=== PATIENT | male | born 1945 | race Caucasian/White ===

== ENCOUNTER 2022-04-10 21:23 | Inpatient (IN) | payer MEDICARE ==
[~2022-04-10] VITALS: Ht 177.8 cm; Wt 97.6 kg
--- NOTE | 2022-04-10 21:23 | NUR ---
Dr Manzo in room MSE in progress
[2022-04-10] MEDS ORDERED: HYDROMORPHONE 1 MG/1 ML DISP.SYRIN ONE (21:56)
[2022-04-10] MEDS ORDERED: ONDANSETRON 4 MG/2 ML VIAL ONE (21:56)
[2022-04-10] MEDS ORDERED: ONDANSETRON 4 MG/2 ML VIAL IV ONE (22:00)
[2022-04-10] MEDS ORDERED: HYDROMORPHONE 1 MG/1 ML DISP.SYRIN IV ONE (22:00)
[2022-04-10] MEDS ORDERED: PRED20TA PO (22:09)
[2022-04-10] MEDS ORDERED: OXYC10TA49 PO (22:09)
[2022-04-10 22:17] LABS: HEMATOCRIT 37.7 % (36.7-47.1); MEAN CORPUSCULAR HEMOGLOBIN 30.9 uug (23.8-33.4); MEAN CORPUSCULAR VOLUME 92.5 fL (73.0-96.2); PLATELET COUNT (AUTO) 202 K/uL (152-348)
[2022-04-10 22:27] LABS: *BILIRUBIN,URIN 1+ (NEGATIVE); *COLOR,URINE YELLOW (YELLOW); *KETONES,URINE TRACE (NEGATIVE); LEUKOCYTE ESTERASE ,URINE NEGATIVE (NEGATIVE); NITRITE, URINE NEGATIVE (NEGATIVE); UGLUCOSE NEGATIVE (NEGATIVE)
[2022-04-10 22:30] LABS: *BLOOD, URINE TRACE (NEGATIVE)
[2022-04-10 22:33] LABS: *CLARITY,URINE HAZY (CLEAR)
[2022-04-10] MEDS ORDERED: IV NORMAL SALINE 1000 ML BAG IV ONE (22:45)
[2022-04-10 22:49] LABS: ALANINE AMINOTRANSFERASE 46 U/L (16-63); ALKALINE PHOSPHATASE 110 U/L (50-136); ASPARTATE AMINOTRANSFERASE 21 U/L (15-37); BILIRUBIN,DIRECT 0.3 mg/dL (0.0-0.2); BILIRUBIN,TOTAL 0.7 mg/dL (0.2-1.0); CARBON DIOXIDE 31 mmol/L (21-32); CHLORIDE 102 mmol/L (98-107); CREATININE 0.9 mg/dL (0.6-1.3); GLUCOSE 131 mg/dL (74-106); LIPASE 65 U/L (73-393); POTASSIUM 3.2 mmol/L (3.5-5.1); TOTAL PROTEIN, SERUM 6.6 g/dL (6.4-8.2); UREA NITROGEN, BLOOD 17 mg/dL (7-18)
[2022-04-10] MEDS ORDERED: IV NORMAL SALINE 250 ML IV ONE (23:06)
[2022-04-10] MEDS ORDERED: SWABABLE VALVE TRANSFER SET EA MC ONE (23:06)
[2022-04-10] MEDS ORDERED: IOHEXOL 300MG/ML 100 ML INFUS..BTL ONE (23:06)
[2022-04-10] MEDS ORDERED: IV 0.9% SODIUM CHLORID+ 20 KCL 1,000 ML IV ONE (23:15)
[2022-04-10] MEDS ORDERED: SCOPOLAMINE PATCH 1 MG/72 HRS PATCH TD SCH (23:15)
--- NOTE | 2022-04-10 23:18 | NUR ---
PATIENT TAKEN TO CT
--- NOTE | 2022-04-10 23:35 | NUR ---
Patient back from CT
[2022-04-11] MEDS ORDERED: POTASSIUM CHLORIDE 100 ML ONE (00:07)
[2022-04-11] MEDS ORDERED: PIPERACILLIN/TAZOBACTAM/D5W 50 ML IV ONE (00:09)
[2022-04-11] MEDS ORDERED: PIPERACILLIN SODIUM/TAZOBACTAM 3.375 G in IV DEXTROSE 5% 50 ML IV ONE (00:15)
--- NOTE | 2022-04-11 02:20 | NUR ---
CALLED [facility] FOR PANEL CALL
--- NOTE | 2022-04-11 02:43 | NUR ---
Patient will be admitted to med/surg room 325
[2022-04-11] MEDS ORDERED: ONDANSETRON 4 MG/2 ML VIAL IV PRN (02:45)
[2022-04-11] MEDS ORDERED: LORAZEPAM 2 MG/1 ML VIAL IV PRN (02:45)
[2022-04-11] MEDS ORDERED: ACETAMINOPHEN 325 MG TABLET PO PRN (02:45)
[2022-04-11] MEDS ORDERED: MAGNESIUM HYDROXIDE 30 ML LIQUID UDC PO PRN (02:45)
[2022-04-11] MEDS ORDERED: MORPHINE SULFATE 2 MG/1 ML DISP.SYRIN IV PRN (02:45)
[2022-04-11] MEDS ORDERED: REMEDY ESSENTIAL ZINC PASTE 113 GM TP PRN (02:45)
--- NOTE | 2022-04-11 03:04 | NUR ---
report given to Ignacia
--- NOTE | 2022-04-11 04:01 | NUR ---
Pt. admitted to med/surg room 325, under care of Ricci Mosher List completed Stephanie RN, Ignacia RN aware of patient's arrival
[2022-04-11] MEDS: IV D5 1/2 NS 1000 ML 1,000 ML IV PRN (04:22)
--- NOTE | 2022-04-11 04:49 | NUR ---
Admitted medsurg pt from ER accompanied by ER Nurse. He is alert and oriented x4, able to make needs known, uncooperative and refuses care. On room air with no respiratory distress noted. IV access on RAC #20, patent and intact flushed with NS. On NPO, pt aware. Initial and full body assessment done with pictures taken and placed in chart. Refuses and uncooperative when nursing care is given. Colostomy bag changed, noted with soft brown stool. Denies pain and discomfort at this time. Vital signs refused. Started IV D5 1/2 NS running at 75 ml/hr. All needs attended. Call light placed within reach, oriented to room. Will continue to monitor.
--- NOTE | 2022-04-11 06:27 | NUR ---
Pt still asleep, easily arousable and in no acute distress noted. Does not want to be bothered. IV access on RAC patent and infusing well with D5 1/2 NS running at 75 ml/hr. No s/sx of infiltration. Remains on NPO. All needs attended. Will endorse to next shift.
[2022-04-11 06:41] LABS: BACTERIA,URINE NONE SEEN /HPF (NONE SEEN); RBC,URINE NONE SEEN /HPF (0-3); SQUAMOUS EPITHELIAL CELL,UR FEW /HPF (NONE SEEN); WBC,URINE 0-3 /HPF (0-3)
[2022-04-11] MEDS ORDERED: PIPERACILLIN SODIUM/TAZOBACTAM 3.375 G in IV DEXTROSE 5% 50 ML IV SCH (08:00)
--- NOTE | 2022-04-11 09:00 | NUR ---
Pt is a/o x 4, upset stating he wants to go home. Pt pulled out IV and refused to have another inserted. I redirected patient and explained why he needs another IV, pt calmed down and cooperated. Ordered midline to be inserted. Pt was combative with midline nurse and was not allowing insertion. We calmed pt down and insertion was successful on left upper arm 18g. Comfort measures provided, call light within reach. Will continue to monitor.
[2022-04-11] MEDS: PANTOPRAZOLE SODIUM 40 MG VIAL IV SCH ×2 (09:17→10:18)
[2022-04-11] MEDS: PIPERACILLIN SODIUM/TAZOBACTAM 3.375 G in IV DEXTROSE 5% 100 ML IV SCH ×4 (09:17→23:41)
[2022-04-11 10:18] LABS: HEMATOCRIT 33.6 % (36.7-47.1); MEAN CORPUSCULAR HEMOGLOBIN 31.5 uug (23.8-33.4); MEAN CORPUSCULAR VOLUME 92.9 fL (73.0-96.2); PLATELET COUNT (AUTO) 180 K/uL (152-348)
[2022-04-11 10:31] LABS: CREATININE 0.8 mg/dL (0.6-1.3); POTASSIUM 3.8 mmol/L (3.5-5.1)
[2022-04-11 11:18] VITALS: BP 126/64
[2022-04-11 11:25] LABS: BAND % (MANUAL) 18 % (0-10); LYMPHOCYTES % (MANUAL) 5 % (20-40); MONOCYTES % (MANUAL) 2 % (2-10); NEUTROPHILS % (MANUAL) 75 % (42-75)
[2022-04-11 11:39] LABS: BAND % (MANUAL) 7 % (0-10); LYMPHOCYTES % (MANUAL) 21 % (20-40); MONOCYTES % (MANUAL) 8 % (2-10); NEUTROPHILS % (MANUAL) 64 % (42-75)
[2022-04-11 15:36] VITALS: BP 119/63
[2022-04-11 15:42] VITALS: BP 120/76
--- NOTE | 2022-04-11 18:44 | NUR ---
Pt is currently asleep in bed, IV intact and patent, pt is cooperative with care as long as steps are explained to him. No complaint of pain at this time. Pt does exhibit shortness of breath when head of bed is too elevated. Comfort measures provided. 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
[2022-04-11 21:01] VITALS: BP 136/75
[2022-04-12] MEDS: PIPERACILLIN SODIUM/TAZOBACTAM 3.375 G in IV DEXTROSE 5% 100 ML IV SCH ×3 (08:22→16:15)
[2022-04-12] MEDS: PANTOPRAZOLE SODIUM 40 MG VIAL IV SCH (13:14)
[2022-04-12 17:15] VITALS: BP 113/72
[2022-04-12 20:00] VITALS: BP 113/49
--- NOTE | 2022-04-13 | NUR ---
RN IS UNABLE TO GIVE ZOSYN. NO IV ACCESS NOTED.
[2022-04-13 05:30] VITALS: BP 101/56
[2022-04-13] MEDS: MORPHINE SULFATE 2 MG/1 ML DISP.SYRIN IV PRN ×2 (05:50→14:27)
--- NOTE | 2022-04-13 05:50 | NUR ---
IV INSERTED TO RIGHT WRIST #22 GAUGE. IVF CONTINUED ORDERED. PATIENT C/O PAIN IN ABDOMEN. PATIENT GIVEN MORPHINE 2MG IV PRN PER RN. VS WNL. ALL NEEDS ATTENDED. WILL CONTINUE TO MONITOR AND ASSESS.
[2022-04-13] MEDS: IV D5 1/2 NS 1000 ML 1,000 ML IV PRN (07:08)
[2022-04-13 07:23] LABS: HEMATOCRIT 35.6 % (36.7-47.1); MEAN CORPUSCULAR HEMOGLOBIN 31.1 uug (23.8-33.4); MEAN CORPUSCULAR VOLUME 91.4 fL (73.0-96.2); PLATELET COUNT (AUTO) 188 K/uL (152-348)
--- NOTE | 2022-04-13 07:30 | NUR ---
RECEIVED PATIENT ON BED AWAKE. PT IS ON NPO. ON 2L NC SATURATING AT 97%. R WRIST 22G PATENT AND INTACT.
[2022-04-13 07:50] LABS: CREATININE 0.8 mg/dL (0.6-1.3)
--- NOTE | 2022-04-13 08:30 | NUR ---
RECEIVED CRITICAL LAB REPORT FROM LAB. POTASSIUM 2.7. NOTIFIED BECCA ZUÑIGA. ORDERED KCL 40 MEQ
[2022-04-13] MEDS: PANTOPRAZOLE SODIUM 40 MG VIAL IV SCH (08:37)
[2022-04-13] MEDS: PIPERACILLIN SODIUM/TAZOBACTAM 3.375 G in IV DEXTROSE 5% 100 ML IV SCH ×5 (08:37→23:33)
[2022-04-13 09:17] LABS: POTASSIUM 2.7 mmol/L (3.5-5.1)
[2022-04-13] MEDS ORDERED: POTASSIUM CHLORIDE IV ONE (09:30)
[2022-04-13] MEDS ORDERED: DEXTROSE IV ONE (09:30)
[2022-04-13] MEDS ORDERED: [UNRECOGNIZED DRUG - OTHER] IV ONE (09:30)
[2022-04-13] MEDS: POTASSIUM CHLORIDE 50 ML IV SCH ×4 (10:04→13:00)
--- NOTE | 2022-04-13 10:10 | NUR ---
INFUSED KCL 10MEQ 50ML RATE 50ML/HR X4 PER MD. WILL CONT TO MONITOR.
[2022-04-13 12:00] VITALS: BP 111/56
--- NOTE | 2022-04-13 12:00 | NUR ---
BECCA ZUÑIGA ORDERED PICC LINE FOR PT FOR TPN SOLUTION ADMINISTRATION. CONSENT GIVEN BY THE PT. NOTIFIED SON FOR THE UPDATE. CALLED PLANNING LEAD FOR SETTING UP PICC LINE INSERTION.
[2022-04-13] MEDS ORDERED: TPN/PPN PER PHARMACY IV PRN (12:45)
[2022-04-13 16:37] VITALS: BP 104/51
[2022-04-13] MEDS ORDERED: DEXTROSE 50% 50 ML DISP.SYRIN IV PRN (17:45)
[2022-04-13] MEDS: BLOOD SUGAR DIAGNOSTIC 1 EACH STRIP VI SCH ×2 (18:39→23:35)
--- NOTE | 2022-04-13 18:40 | NUR ---
GEORGE 18G PICC LINE WAS ESTABLISHED. TPN SOLUTION WAS ADMINISTERED AT 35ML/HR PER MD ORDER.
[2022-04-13] MEDS ORDERED: TPN BAG #1 IV SCH ×5 (19:00)
[2022-04-13 20:52] VITALS: BP 124/61
--- NOTE | 2022-04-14 01:19 | NUR ---
RECEIVED PATIENT SLEEPING, EASILY AROUSED. AAOX2-3. ABLE TO MAKE NEEDS KNOWN. ON 3L O2. DENIES SOB, CHEST PAIN OR DIZZINESS. BRUISES AND SCABS NOTED ON BILATERAL ARMS. IV ACCESS NOTED AT GEORGE MIDLINE AND R WRIST. SAFETY PRECAUTIONS INITIATED. MONITORED CLOSELY.
[2022-04-14] MEDS: MORPHINE SULFATE 2 MG/1 ML DISP.SYRIN IV PRN ×2 (02:33→20:56)
--- NOTE | 2022-04-14 02:40 | NUR ---
PATIENT COMPLAINED OF HAVING PAIN. PRN MORPHINE GIVEN.
[2022-04-14 04:56] VITALS: BP 108/64
[2022-04-14] MEDS: BLOOD SUGAR DIAGNOSTIC 1 EACH STRIP VI SCH ×3 (05:33→17:46)
[2022-04-14] MEDS: INSULIN REGULAR, HUMAN 300 UNIT/3 ML VIAL SQ PRN ×3 (05:48→17:47)
--- NOTE | 2022-04-14 05:49 | NUR ---
PATIENT SLEPT THROUGH THE NIGHT. NO ACUTE DISTRESS NOTED AT THIS TIME. O2 TITRATED DOWN TO 2L FROM 3L, PATIENT SATURATING 96%. TPN INFUSING WELL. COLOSTOMY BAG PATENT AND INTACT. ALL NEEDS ATTENDED TO. SAFETY PRECAUTIONS MAINTAINED. WILL ENDORSE TO DAY SHIFT.
[2022-04-14 06:53] LABS: HEMATOCRIT 31.2 % (36.7-47.1); MEAN CORPUSCULAR HEMOGLOBIN 31.2 uug (23.8-33.4); MEAN CORPUSCULAR VOLUME 91.7 fL (73.0-96.2); PLATELET COUNT (AUTO) 148 K/uL (152-348)
[2022-04-14 07:04] LABS: CREATININE 0.7 mg/dL (0.6-1.3); POTASSIUM 3.2 mmol/L (3.5-5.1)
[2022-04-14 08:07] LABS: MAGNESIUM 1.7 mg/dL (1.8-2.4); PHOSPHOROUS 3.4 mg/dL (2.5-4.9)
[2022-04-14] MEDS: PIPERACILLIN SODIUM/TAZOBACTAM 3.375 G in IV DEXTROSE 5% 100 ML IV SCH ×3 (09:34→23:57)
[2022-04-14] MEDS: PANTOPRAZOLE SODIUM 40 MG VIAL IV SCH (09:34)
[2022-04-14] MEDS ORDERED: MAGNESIUM SULFATE/D5W 100 ML IV SCH (10:00)
[2022-04-14] MEDS ORDERED: IV FAT EMULSIONS 20% 250 ML IV SCH (10:00)
[2022-04-14] MEDS ORDERED: DEXAMETHASONE SOD PHOSPHATE 10 MG INJ IV SCH (12:00)
[2022-04-14] MEDS ORDERED: POTASSIUM CHLORIDE IV SCH ×6 (12:00)
[2022-04-14] MEDS ORDERED: SODIUM CHLORIDE IV SCH ×6 (12:00)
[2022-04-14] MEDS ORDERED: [UNRECOGNIZED DRUG - OTHER] IV SCH ×6 (12:00)
[2022-04-14] MEDS ORDERED: TRACE ELEMENTS IV SCH ×6 (12:00)
[2022-04-14 12:12] VITALS: BP 82/53
[2022-04-14 12:49] VITALS: BP 99/54
[2022-04-14] MEDS: ENOXAPARIN SODIUM 40 MG/0.4 ML DISP.SYRIN SQ SCH (14:04)
[2022-04-14 14:55] LABS: ABG BASE EXCESS 3.3 mmol/L; ABG HCO3 25.9 mmol/L; ABG PCO2 32.4 mmHg (35.0-45.0); ABG PH 7.521 (7.350-7.450); ABG PO2 66.9 mmHg (75.0-100.0); ABG SITE RIGHT RADIAL; ABG TOTAL HEMOGLOBIN 10.8 G/dL (13.5-18.0); COHb 0.4 % (0.5-1.5); MetHb 0.3 % (0.0-1.5); O2Hb 93.7 % (94.0-97.0); VENT MODE Nasal Cannula
[2022-04-14 16:45] VITALS: BP 112/58
[2022-04-14] MEDS: HYDROCORTISONE SOD SUCCINATE 100 MG/2 ML VIAL IV SCH ×2 (17:43→23:57)
[2022-04-14 20:00] VITALS: BP 101/60
[2022-04-15] MEDS: BLOOD SUGAR DIAGNOSTIC 1 EACH STRIP VI SCH ×5 (00:12→23:31)
[2022-04-15] MEDS: INSULIN REGULAR, HUMAN 300 UNIT/3 ML VIAL SQ PRN ×5 (00:50→23:32)
[2022-04-15] MEDS: MORPHINE SULFATE 2 MG/1 ML DISP.SYRIN IV PRN ×4 (01:40→22:45)
[2022-04-15 04:00] VITALS: BP 111/64
[2022-04-15] MEDS: HYDROCORTISONE SOD SUCCINATE 100 MG/2 ML VIAL IV SCH ×3 (06:01→21:39)
[2022-04-15 06:46] LABS: HEMATOCRIT 26.7 % (36.7-47.1); MEAN CORPUSCULAR HEMOGLOBIN 31.3 uug (23.8-33.4); PLATELET COUNT (AUTO) 124 K/uL (152-348)
[2022-04-15 07:01] LABS: CREATININE 0.8 mg/dL (0.6-1.3); MAGNESIUM 2.2 mg/dL (1.8-2.4); PHOSPHOROUS 1.8 mg/dL (2.5-4.9)
--- NOTE | 2022-04-15 08:00 | NUR ---
Pt more awake and alert today vs yesterday. Pt Alert x 3. Pt wanting to leave and go to [facility]. Pt denies any c/o pain.
[2022-04-15] MEDS ORDERED: TPN BAG #3 IV ONE ×5 (09:00)
[2022-04-15] MEDS: PIPERACILLIN SODIUM/TAZOBACTAM 3.375 G in IV DEXTROSE 5% 100 ML IV SCH ×3 (09:56→23:30)
[2022-04-15] MEDS: ENOXAPARIN SODIUM 40 MG/0.4 ML DISP.SYRIN SQ SCH (09:57)
[2022-04-15] MEDS: PANTOPRAZOLE SODIUM 40 MG VIAL IV SCH (09:59)
[2022-04-15 12:00] VITALS: BP 98/61
--- NOTE | 2022-04-15 15:55 | NUR ---
Per Supervisor [employer]ing Room Pt will be set up with discharge tomorrow to [facility] [place].
[2022-04-15 16:00] VITALS: BP 111/57
--- NOTE | 2022-04-15 16:00 | NUR ---
Dressing on right arm PICC line changed.
--- NOTE | 2022-04-15 18:00 | NUR ---
Unable to get culture on mid abd no drainage noted. Pt is in no acute distress. Call light is within reach.
[2022-04-15 20:00] VITALS: BP 118/70
[2022-04-16] MEDS ORDERED: TPN BAG #4 IV SCH (01:00)
[2022-04-16] MEDS: MORPHINE SULFATE 2 MG/1 ML DISP.SYRIN IV PRN ×3 (03:52→15:21)
[2022-04-16 04:00] VITALS: BP 110/75
[2022-04-16] MEDS: HYDROCORTISONE SOD SUCCINATE 100 MG/2 ML VIAL IV SCH ×2 (05:51→15:20)
[2022-04-16] MEDS: BLOOD SUGAR DIAGNOSTIC 1 EACH STRIP VI SCH ×2 (05:52→11:33)
[2022-04-16] MEDS: INSULIN REGULAR, HUMAN 300 UNIT/3 ML VIAL SQ PRN ×2 (05:53→11:34)
[2022-04-16 06:29] LABS: CREATININE 0.8 mg/dL (0.6-1.3); MAGNESIUM 2.1 mg/dL (1.8-2.4); PHOSPHOROUS 2.4 mg/dL (2.5-4.9); POTASSIUM 3.6 mmol/L (3.5-5.1)
[2022-04-16 07:29] LABS: HEMATOCRIT 25.2 % (36.7-47.1); MEAN CORPUSCULAR HEMOGLOBIN 31.3 uug (23.8-33.4); MEAN CORPUSCULAR VOLUME 91.5 fL (73.0-96.2); PLATELET COUNT (AUTO) 128 K/uL (152-348)
[2022-04-16] MEDS: PIPERACILLIN SODIUM/TAZOBACTAM 3.375 G in IV DEXTROSE 5% 100 ML IV SCH ×2 (08:48→15:21)
[2022-04-16] MEDS: PANTOPRAZOLE SODIUM 40 MG VIAL IV SCH (08:49)
[2022-04-16] MEDS: ENOXAPARIN SODIUM 40 MG/0.4 ML DISP.SYRIN SQ SCH (08:49)
[2022-04-16] MEDS ORDERED: TPN BAG #5 IV SCH ×7 (11:00)
--- NOTE | 2022-04-16 11:45 | NUR ---
pt is a/o x 4, cooperative with care. Pt receiving TPN. medical records still pending, refaxed request today. Plan is to discharge pt to a SNF, pending placement. comfort measures provided, call light within reach. Will continue to monitor.
[2022-04-16 12:00] VITALS: BP 112/70
--- NOTE | 2022-04-16 12:30 | NUR ---
pt blood sugar 203, pt refused insulin coverage.
[2022-04-16] MEDS ORDERED: PIPE3.379 IV (12:40)
[2022-04-16] MEDS ORDERED: ENOX40DI SQ (12:40)
[2022-04-16] MEDS ORDERED: IV FAT EMULSIONS 20% 250 ML IV SCH (13:00)
[2022-04-16 15:58] VITALS: BP 110/72
--- NOTE | 2022-04-16 18:07 | NUR ---
Pt is being discharged, picked up by [facility] ambulance unit [id number]. Pt is going to [facility] bed 203B. Report called to Melissa FORREST. All discharge education and papers given to pt along with H & P and medication records. All personal belongings at hand. Pt aware and agreeable of transfer.
[2022-04-16] MEDS ORDERED: TPN BAG #6 IV SCH (21:45)
[2022-04-17] MEDS ORDERED: TPN BAG #7 IV SCH (07:45)
== END 2022-04-16 18:10 | DRG 393 ==
LOC: ER 21:50 → MEDSURG3 23:55
PROVIDERS: ADMIT Nurse Practitioner Acute Care; ATTEND Nurse Practitioner Acute Care
PROC: 05H633Z Insertion of Infusion Device into Left Subclavian Vein, Percutaneous Approach (ICD-10-PCS; principal; 2022-04-11)
PROC: B547ZZA Ultrasonography of Left Subclavian Vein, Guidance (ICD-10-PCS; 2022-04-11)
PROC: 05H633Z Insertion of Infusion Device into Left Subclavian Vein, Percutaneous Approach (ICD-10-PCS; 2022-04-12)
PROC: B547ZZA Ultrasonography of Left Subclavian Vein, Guidance (ICD-10-PCS; 2022-04-12)
PROC: 02HV33Z Insertion of Infusion Device into Superior Vena Cava, Percutaneous Approach (ICD-10-PCS; 2022-04-13)
PROC: B548ZZA Ultrasonography of Superior Vena Cava, Guidance (ICD-10-PCS; 2022-04-13)
DX: K94.02 Colostomy infection (principal); A41.9 Sepsis, unspecified organism; K63.1 Perforation of intestine (nontraumatic); K65.1 Peritoneal abscess; N32.2 Vesical fistula, not elsewhere classified; N13.0 Hydronephrosis with ureteropelvic junction obstruction; J98.11 Atelectasis; J90 Pleural effusion, not elsewhere classified; Z85.820 Personal history of malignant melanoma of skin; Z86.73 Personal history of transient ischemic attack (TIA), and cerebral infarction without residual deficits; Z79.52 Long term (current) use of systemic steroids; E87.6 Hypokalemia; D72.829 Elevated white blood cell count, unspecified; I25.10 Atherosclerotic heart disease of native coronary artery without angina pectoris; Z98.61 Coronary angioplasty status; Y83.8 Other surgical procedures as the cause of abnormal reaction of the patient, or of later complication, without mention of misadventure at the time of the procedure; Y73.8 Miscellaneous gastroenterology and urology devices associated with adverse incidents, not elsewhere classified; Y92.009 Unspecified place in unspecified non-institutional (private) residence as the place of occurrence of the external cause; D64.9 Anemia, unspecified; D69.6 Thrombocytopenia, unspecified
CPT/HCPCS: 36415; 36569; 36600; 70030-TC; 71045; 71250; 83605; 83690; 83735; 84100; 84478; 84484; 85025; 85610; 93005; 97161; A4663; C9113; G0378; J1100; J1170; J1650; J1720; J1815; J2060; J2270; J2405; J2543; J3475; J3480; J3490; J7040; J7131; Q9967